=== PATIENT | female | born 1960 | race Caucasian/White ===

== ENCOUNTER 2020-07-04 18:21 | Emergency (ER) | payer BC ==
[~2020-07-04] VITALS: Ht 165.1 cm; Wt 75.9 kg
[2020-07-04 18:23] VITALS: BP 143/61
== END 2020-07-04 21:18 | disposition home or self-care (01) ==
LOC: ER 18:25
DX: S42.201A Unspecified fracture of upper end of right humerus, initial encounter for closed fracture (principal); M25.511 Pain in right shoulder; X58.XXXA Exposure to other specified factors, initial encounter; Y93.89 Activity, other specified; Y92.89 Other specified places as the place of occurrence of the external cause; Y99.8 Other external cause status
CPT/HCPCS: 29105; 73030; 99284